=== PATIENT | female | born 1950 | race Hispanic/Latino ===

== ENCOUNTER 2022-04-08 08:52 | Inpatient (IN) | payer OTHER ==
[~2022-04-08] VITALS: Ht 157.5 cm; Wt 64.1 kg
[2022-04-08 09:34] LABS: BASOPHILS % (AUTO) 0.2 % (0.0-5.0); EOSINOPHILS % (AUTO) 0.1 % (0.0-8.0); HEMATOCRIT 36.9 % (36-48); LYMPHOCYTES % (AUTO) 7.7 % (21.0-51.0); MEAN CORPUSCULAR HEMOGLOBIN 29.2 pg (27.0-33.0); MEAN CORPUSCULAR HGB CONC 33.6 g/dL (32.0-36.0); MEAN CORPUSCULAR VOLUME 86.8 fL (79-99); MONOCYTES % (AUTO) 2.3 % (3.0-13.0); NEUTROPHILS % (AUTO) 89.4 % (40.0-77.0); PLATELET COUNT (AUTO) 136 K/uL (130-400); RED BLOOD CELL COUNT(AUTO) 4.25 MIL/uL (4.00-5.50); RED CELL DISTRIBUTION WIDTH 13.9 % (11.0-15.5); WHITE BLOOD COUNT (AUTO) 10.8 K/uL (4.8-10.8)
[2022-04-08 09:40] LABS: APPEARANCE,URINE SL CLOUDY (CLEAR); BILIRUBIN,URINE NEGATIVE (NEGATIVE); COLOR,URINE YELLOW (YELLOW); GLUCOSE, URINE (UA) NEGATIVE (NEGATIVE); KETONES,URINE NEGATIVE (NEGATIVE); LEUKOCYTE ESTERASE ,URINE LARGE Leu/uL (NEGATIVE); NITRATE,URINE NEGATIVE (NEGATIVE); OCCULT BLOOD,URINE LARGE (NEGATIVE); PROTEIN,URINE 100 mg/dL (NEGATIVE); UROBILINOGEN,URINE 0.2 mg/dL (0.2-1.0)
[2022-04-08 09:41] LABS: CREATININE 1.8 mg/dL (0.5-1.5); POTASSIUM 4.4 mmol/L (3.5-5.1); TOTAL PROTEIN, SERUM 7.4 g/dL (6.0-8.3)
[2022-04-08 09:58] LABS: BACTERIA,URINE Moderate /HPF (None Seen); RBC,URINE 26-50 /HPF (0-1); WBC,URINE 26-50 /HPF (0-1)
[2022-04-08 09:59] LABS: RENAL EPITHELIAL CELLS,URINE Few /HPF (None Seen); TRANSITIONAL EPI CELLS,URINE Few /HPF (None Seen)
[2022-04-08] MEDS ORDERED: ONDANSETRON 4MG INJ IVP SCH (10:00)
[2022-04-08] MEDS ORDERED: ASPIRIN 81MG CHEW TAB PO SCH (10:00)
[2022-04-08] MEDS ORDERED: CEFTRIAXONE 1G VIAL ONE (10:38)
[2022-04-08] MEDS ORDERED: CEFTRIAXONE 1G VIAL IVP ONE (11:00)
[2022-04-08] MEDS ORDERED: LACTATED RINGERS 1000ML 1,000 ML IV ONE (12:15)
[2022-04-08] MEDS: LACTATED RINGERS 1000ML 1,000 ML IV SCH ×2 (12:15→23:50)
[2022-04-08] MEDS ORDERED: CLONIDINE HCL 0.1 MG TABLET PO PRN (12:30)
[2022-04-08] MEDS: CEFTRIAXONE 1G VIAL IVP SCH (12:30)
[2022-04-08] MEDS ORDERED: ACETAMINOPHEN 650 MG SUPPOSITORY RC PRN (12:30)
[2022-04-08] MEDS ORDERED: LACTULOSE 20 GM/30 ML UDCUP PO PRN (12:30)
[2022-04-08] MEDS ORDERED: ONDANSETRON 4MG INJ IVP PRN (12:30)
[2022-04-08] MEDS ORDERED: LABETALOL 20MG SYG IV PRN (12:30)
[2022-04-08] MEDS ORDERED: ASPIRIN 325MG TAB PO SCH (12:30)
[2022-04-08 12:44] LABS: CREATINE KINASE, TOTAL 25 U/L (21-232); MYOGLOBIN 67 ng/mL (10-92)
[2022-04-08] MEDS ORDERED: POTASSIUM CHLORIDE 10% ELIXIR 20 MEQ/15 ML UDCUP PO PRN (13:30)
[2022-04-08] MEDS ORDERED: KCL 20 MEQ ERTAB PO PRN (13:30)
[2022-04-08] MEDS ORDERED: GLUCAGON 1MG KIT 1 MG ML IM PRN (13:30)
[2022-04-08] MEDS ORDERED: LIDOCAINE HCL-MPF 1% 2ML VIAL IV PRN ×2 (13:30)
[2022-04-08] MEDS ORDERED: MAGNESIUM 2GM PREMIX 50ML 50 ML IV PRN (13:30)
[2022-04-08] MEDS ORDERED: POTASSIUM CHLORIDE 20MEQ/100ML 100 ML IV PRN ×2 (13:30)
[2022-04-08] MEDS ORDERED: DEXTROSE 50%-WATER 50 ML DISP.SYRIN IV PRN (13:30)
[2022-04-08] MEDS ORDERED: INSULIN HUMULIN R 100 UNIT/ML 3ML ONE (13:50)
[2022-04-08] MEDS ORDERED: METO-409 PO (16:26)
[2022-04-08] MEDS ORDERED: DOXA4TAB3 PO (16:26)
[2022-04-08] MEDS ORDERED: LOSA100T58 PO (16:26)
[2022-04-08] MEDS ORDERED: ATOR20TA65 PO (16:26)
[2022-04-08] MEDS ORDERED: GLIP2.5T2 PO (16:26)
[2022-04-08] MEDS ORDERED: AMLO-257 PO (16:26)
[2022-04-08] MEDS ORDERED: DONE10TA43 PO (16:26)
[2022-04-08 16:30] VITALS: BP 113/45
[2022-04-08] MEDS: INSULIN HUMULIN R 100 UNIT/ML 3ML SQ SCH ×4 (16:30→21:00)
[2022-04-08 19:39] VITALS: BP 154/54
[2022-04-08] MEDS: FAMOTIDINE 20MG TAB PO SCH (20:33)
[2022-04-08 23:49] VITALS: BP 147/60
[2022-04-08] MEDS: ACETAMINOPHEN 325 MG TAB PO PRN (23:51)
[2022-04-09 03:58] VITALS: BP 149/48
[2022-04-09 04:30] LABS: BASOPHILS % (AUTO) 0.2 % (0.0-5.0); EOSINOPHILS % (AUTO) 0.2 % (0.0-8.0); HEMATOCRIT 31.9 % (36-48); LYMPHOCYTES % (AUTO) 12.4 % (21.0-51.0); MEAN CORPUSCULAR HEMOGLOBIN 29.3 pg (27.0-33.0); MEAN CORPUSCULAR HGB CONC 32.9 g/dL (32.0-36.0); MEAN CORPUSCULAR VOLUME 89.1 fL (79-99); NEUTROPHILS % (AUTO) 77.6 % (40.0-77.0); PLATELET COUNT (AUTO) 121 K/uL (130-400); RED BLOOD CELL COUNT(AUTO) 3.58 MIL/uL (4.00-5.50); RED CELL DISTRIBUTION WIDTH 13.9 % (11.0-15.5); WHITE BLOOD COUNT (AUTO) 10.5 K/uL (4.8-10.8)
[2022-04-09 04:44] LABS: CREATININE 1.7 mg/dL (0.5-1.5); MAGNESIUM 2.1 mg/dL (1.80-2.40); PHOSPHORUS 4.4 mg/dL (2.5-4.9); POTASSIUM 4.5 mmol/L (3.5-5.1)
[2022-04-09 05:02] LABS: B-TYPE NATRIURETIC PEPTIDE 169 pg/mL (0-100)
[2022-04-09] MEDS: INSULIN HUMULIN R 100 UNIT/ML 3ML SQ SCH ×4 (07:30→20:54)
[2022-04-09 08:00] VITALS: BP 157/48
[2022-04-09] MEDS: ASPIRIN 81MG CHEW TAB PO SCH (08:29)
[2022-04-09] MEDS: FAMOTIDINE 20MG TAB PO SCH ×2 (08:29→21:08)
[2022-04-09] MEDS: ENOXAPARIN SODIUM 40 MG/0.4 ML SYRINGE SQ SCH (08:30)
[2022-04-09] MEDS: LACTATED RINGERS 1000ML 1,000 ML IV SCH ×3 (08:33→20:30)
[2022-04-09] MEDS: CEFTRIAXONE 1G VIAL IVP SCH (11:18)
[2022-04-09 12:00] VITALS: BP 151/48
[2022-04-09 16:00] VITALS: BP 157/58
[2022-04-09] MEDS: LOSARTAN 100 MG TABLET PO SCH (17:59)
[2022-04-09] MEDS: AMLODIPINE 5 MG TAB PO SCH (17:59)
[2022-04-09] MEDS ORDERED: ALPR0.5T8 PO (19:41)
[2022-04-09 20:29] VITALS: BP 154/62
[2022-04-09] MEDS ORDERED: GLIPIZIDE XL 2.5MG TAB PO SCH (21:00)
[2022-04-09] MEDS: DOXAZOSIN MESYLATE 2 MG TABLET PO SCH (21:08)
[2022-04-09] MEDS: METOPROLOL SUCCINATE 50 MG TAB.SR.24H PO SCH (21:08)
[2022-04-09] MEDS: ATORVASTATIN 20 MG TABLET PO SCH (21:08)
[2022-04-09] MEDS: DONEPEZIL HCL 5 MG TAB PO SCH (21:08)
[2022-04-09] MEDS ORDERED: ALPRAZOLAM 0.5 MG TABLET ONE (22:44)
[2022-04-09] MEDS: ACETAMINOPHEN 325 MG TAB PO PRN (23:26)
[2022-04-09 23:38] VITALS: BP 149/64
[2022-04-10] MEDS ORDERED: LACTATED RINGERS 1000ML 1,000 ML IV SCH (03:00)
[2022-04-10 03:36] VITALS: BP 146/72
[2022-04-10 04:45] LABS: BASOPHILS % (AUTO) 0.2 % (0.0-5.0); EOSINOPHILS % (AUTO) 0.6 % (0.0-8.0); HEMATOCRIT 31.7 % (36-48); LYMPHOCYTES % (AUTO) 15.3 % (21.0-51.0); MEAN CORPUSCULAR HEMOGLOBIN 29.3 pg (27.0-33.0); MEAN CORPUSCULAR HGB CONC 33.1 g/dL (32.0-36.0); MEAN CORPUSCULAR VOLUME 88.5 fL (79-99); MONOCYTES % (AUTO) 9.7 % (3.0-13.0); NEUTROPHILS % (AUTO) 73.7 % (40.0-77.0); PLATELET COUNT (AUTO) 124 K/uL (130-400); RED BLOOD CELL COUNT(AUTO) 3.58 MIL/uL (4.00-5.50); RED CELL DISTRIBUTION WIDTH 13.6 % (11.0-15.5); WHITE BLOOD COUNT (AUTO) 6.3 K/uL (4.8-10.8)
[2022-04-10 05:02] LABS: ALBUMIN 2.4 g/dL (3.5-5.0); CREATININE 1.5 mg/dL (0.5-1.5); POTASSIUM 3.9 mmol/L (3.5-5.1); TOTAL PROTEIN, SERUM 6.5 g/dL (6.0-8.3)
[2022-04-10] MEDS: INSULIN HUMULIN R 100 UNIT/ML 3ML SQ SCH ×4 (06:35→20:45)
[2022-04-10 08:00] VITALS: BP 134/46
[2022-04-10] MEDS: ASPIRIN 81MG CHEW TAB PO SCH (08:11)
[2022-04-10] MEDS: LOSARTAN 100 MG TABLET PO SCH (08:11)
[2022-04-10] MEDS: FAMOTIDINE 20MG TAB PO SCH ×2 (08:11→20:51)
[2022-04-10] MEDS: ENOXAPARIN SODIUM 40 MG/0.4 ML SYRINGE SQ SCH (08:13)
[2022-04-10] MEDS: CEFTRIAXONE 1G VIAL IVP SCH (11:39)
[2022-04-10 12:04] VITALS: BP 144/64
[2022-04-10] MEDS: ACETAMINOPHEN 325 MG TAB PO PRN ×2 (14:48→16:36)
[2022-04-10 16:00] VITALS: BP 149/78
[2022-04-10] MEDS: AMLODIPINE 5 MG TAB PO SCH (16:36)
[2022-04-10 20:20] VITALS: BP 146/69
[2022-04-10] MEDS: DOXAZOSIN MESYLATE 2 MG TABLET PO SCH (20:50)
[2022-04-10] MEDS: DONEPEZIL HCL 5 MG TAB PO SCH (20:51)
[2022-04-10] MEDS: METOPROLOL SUCCINATE 50 MG TAB.SR.24H PO SCH (20:51)
[2022-04-10] MEDS: ATORVASTATIN 20 MG TABLET PO SCH (20:51)
[2022-04-10] MEDS ORDERED: ALPRAZOLAM 0.5 MG TABLET PO SCH (21:00)
[2022-04-10] MEDS ORDERED: LEVO-70 PO (23:12)
[2022-04-11] VITALS: BP 127/73
[2022-04-11 04:18] VITALS: BP 141/67
[2022-04-11 04:58] LABS: BASOPHILS % (AUTO) 0.2 % (0.0-5.0); EOSINOPHILS % (AUTO) 1.3 % (0.0-8.0); HEMATOCRIT 33.6 % (36-48); LYMPHOCYTES % (AUTO) 23.9 % (21.0-51.0); MEAN CORPUSCULAR HEMOGLOBIN 28.6 pg (27.0-33.0); MEAN CORPUSCULAR HGB CONC 32.7 g/dL (32.0-36.0); MEAN CORPUSCULAR VOLUME 87.5 fL (79-99); MONOCYTES % (AUTO) 10.4 % (3.0-13.0); NEUTROPHILS % (AUTO) 63.8 % (40.0-77.0); PLATELET COUNT (AUTO) 144 K/uL (130-400); RED BLOOD CELL COUNT(AUTO) 3.84 MIL/uL (4.00-5.50); RED CELL DISTRIBUTION WIDTH 13.5 % (11.0-15.5); WHITE BLOOD COUNT (AUTO) 5.5 K/uL (4.8-10.8)
[2022-04-11 05:06] LABS: ALBUMIN 2.7 g/dL (3.5-5.0); CREATININE 1.4 mg/dL (0.5-1.5); POTASSIUM 3.6 mmol/L (3.5-5.1); TOTAL PROTEIN, SERUM 7.1 g/dL (6.0-8.3)
[2022-04-11] MEDS: INSULIN HUMULIN R 100 UNIT/ML 3ML SQ SCH (06:05)
[2022-04-11 07:10] VITALS: BP 138/74
[2022-04-11] MEDS: LOSARTAN 100 MG TABLET PO SCH (08:59)
[2022-04-11] MEDS: ENOXAPARIN SODIUM 40 MG/0.4 ML SYRINGE SQ SCH (08:59)
[2022-04-11] MEDS: FAMOTIDINE 20MG TAB PO SCH (08:59)
[2022-04-11] MEDS: ASPIRIN 81MG CHEW TAB PO SCH (08:59)
[2022-04-11] MEDS ORDERED: LEVOFLOXACIN 500 MG TABLET PO SCH (09:00)
== END 2022-04-11 10:50 | disposition home or self-care (01) | DRG 871 ==
LOC: EDH 08:52 → EDHIP 12:05 → 4AH 16:09
PROVIDERS: ADMIT Internal Medicine Critical Care Medicine; ATTEND Internal Medicine Critical Care Medicine
DX: A41.51 Sepsis due to Escherichia coli [E. coli] (principal); I21.A1 Myocardial infarction type 2; N17.9 Acute kidney failure, unspecified; N39.0 Urinary tract infection, site not specified; Z20.822 Contact with and (suspected) exposure to COVID-19; I12.9 Hypertensive chronic kidney disease with stage 1 through stage 4 chronic kidney disease, or unspecified chronic kidney disease; N18.9 Chronic kidney disease, unspecified; E86.0 Dehydration; E78.00 Pure hypercholesterolemia, unspecified; E11.22 Type 2 diabetes mellitus with diabetic chronic kidney disease; Z90.710 Acquired absence of both cervix and uterus; Z83.3 Family history of diabetes mellitus; Z82.49 Family history of ischemic heart disease and other diseases of the circulatory system
CPT/HCPCS: 36415; 71045; 74176; 80048; 80053; 81001; 82550; 82948; 83605; 83735; 83874; 83880; 84100; 84145; 84484; 85025; 87040; 87077; 87088; 87186; 87635; 87804; 93005; C9803; G0378; J0696; J1650; J1815; J2405; J7120

== ENCOUNTER → 2022-09-13 | Outpatient (CLI) | payer OTHER ==
[~2022-09-13] MED LIST: ALPR0.5T8 PO; AMLO-257 PO; APIX2.5T PO; ATOR20TA65 PO; DONE10TA43 PO; DOXA4TAB3 PO; GLIP2.5T2 PO; LOSA100T58 PO; METO-409 PO
== END | disposition home or self-care (01) ==
LOC: SHCH 13:01
PROVIDERS: ATTEND Internal Medicine Cardiovascular Disease
DX: I87.2 Venous insufficiency (chronic) (peripheral) (principal); I73.9 Peripheral vascular disease, unspecified
CPT/HCPCS: 93925; 93970

== ENCOUNTER → 2023-03-27 | Outpatient (CLI) | payer OTHER ==
[~2023-03-27] MED LIST changes: -LOSA100T58 PO; +LOSA100T59 PO
[2023-03-27 12:24] LABS: BASOPHILS # (AUTO) 0.03 K/uL (0.00-0.20); BASOPHILS % (AUTO) 0.4 % (0.0-5.0); EOSINOPHILS % (AUTO) 2.5 % (0.0-8.0); HEMATOCRIT 41.5 % (36-48); IMMATURE GRANULOCYTE ABSOLUTE 0.01 K/uL (0-1); LYMPHOCYTES # (AUTO) 3.3 K/uL (1.0-4.8); LYMPHOCYTES % (AUTO) 40.9 % (21.0-51.0); MEAN CORPUSCULAR HEMOGLOBIN 29.1 pg (27.0-33.0); MEAN CORPUSCULAR HGB CONC 31.3 g/dL (32.0-36.0); MEAN CORPUSCULAR VOLUME 92.8 fL (79-99); MONOCYTES # (AUTO) 0.5 K/uL (0.1-1.0); MONOCYTES % (AUTO) 5.8 % (3.0-13.0); NEUTROPHILS # (AUTO) 4.1 K/uL (1.8-7.7); NEUTROPHILS % (AUTO) 50.3 % (40.0-77.0); PLATELET COUNT (AUTO) 199 K/uL (130-400); RED BLOOD CELL COUNT(AUTO) 4.47 MIL/uL (4.00-5.50); RED CELL DISTRIBUTION WIDTH 14.3 % (11.0-15.5); WHITE BLOOD COUNT (AUTO) 8.1 K/uL (4.8-10.8)
[2023-03-27 12:36] LABS: INR 1.01 (0.85-1.15); PROTHROMBIN TIME 11.7 SEC (9.6-11.6)
[2023-03-27 12:38] LABS: PARTIAL THROMBOPLASTIN TIME 28.4 SEC (26.3-35.5)
[2023-03-27 12:56] LABS: CREATININE 1.7 mg/dL (0.5-1.5); POTASSIUM 4.3 mmol/L (3.5-5.1)
== END | disposition home or self-care (01) ==
LOC: LAB 09:44
PROVIDERS: ATTEND Internal Medicine Cardiovascular Disease
DX: I87.2 Venous insufficiency (chronic) (peripheral) (principal); I87.1 Compression of vein; R07.89 Other chest pain; I10 Essential (primary) hypertension; E78.5 Hyperlipidemia, unspecified; E11.9 Type 2 diabetes mellitus without complications; Z79.82 Long term (current) use of aspirin; Z79.899 Other long term (current) drug therapy
CPT/HCPCS: 36415; 80048; 85025; 85610; 85730

== ENCOUNTER → 2023-09-06 | Outpatient (CLI) | payer OTHER ==
[2023-09-06 12:39] LABS: BASOPHILS # (AUTO) 0.01 K/uL (0.00-0.20); BASOPHILS % (AUTO) 0.1 % (0.0-5.0); EOSINOPHILS # (AUTO) 0.04 K/uL (0.00-0.70); EOSINOPHILS % (AUTO) 0.4 % (0.0-8.0); HEMATOCRIT 36.6 % (36-48); IMMATURE GRANULOCYTE ABSOLUTE 0.03 K/uL (0-1); LYMPHOCYTES % (AUTO) 21.7 % (21.0-51.0); MEAN CORPUSCULAR HGB CONC 34.2 g/dL (32.0-36.0); MEAN CORPUSCULAR VOLUME 87.8 fL (79-99); MONOCYTES # (AUTO) 0.7 K/uL (0.1-1.0); MONOCYTES % (AUTO) 7.2 % (3.0-13.0); NEUTROPHILS # (AUTO) 6.5 K/uL (1.8-7.7); NEUTROPHILS % (AUTO) 70.3 % (40.0-77.0); PLATELET COUNT (AUTO) 201 K/uL (130-400); RED BLOOD CELL COUNT(AUTO) 4.17 MIL/uL (4.00-5.50); RED CELL DISTRIBUTION WIDTH 14.2 % (11.0-15.5); WHITE BLOOD COUNT (AUTO) 9.3 K/uL (4.8-10.8)
[2023-09-06 12:45] LABS: INR 1.06 (0.85-1.15); PROTHROMBIN TIME 12.4 SEC (9.6-11.6)
[2023-09-06 12:47] LABS: PARTIAL THROMBOPLASTIN TIME 27.7 SEC (26.3-35.5)
[2023-09-06 13:02] LABS: POTASSIUM 3.9 mmol/L (3.5-5.1)
== END | disposition home or self-care (01) ==
LOC: LAB 08:53
PROVIDERS: ATTEND Internal Medicine Cardiovascular Disease
DX: I10 Essential (primary) hypertension (principal); I87.1 Compression of vein; Z79.01 Long term (current) use of anticoagulants
CPT/HCPCS: 36415; 80048; 85025; 85610; 85730

== ENCOUNTER → 2023-12-05 | Outpatient (CLI) | payer OTHER, MEDICARE | END | disposition home or self-care (01) | LOC: SHCH 08:32 | PROVIDERS: ATTEND Internal Medicine Cardiovascular Disease | DX: I08.3 Combined rheumatic disorders of mitral, aortic and tricuspid valves (principal); I11.9 Hypertensive heart disease without heart failure; E11.9 Type 2 diabetes mellitus without complications; E78.5 Hyperlipidemia, unspecified; R07.9 Chest pain, unspecified; R06.09 Other forms of dyspnea; I20.9 Angina pectoris, unspecified | CPT/HCPCS: 93306 ==

== ENCOUNTER → 2023-12-08 | Outpatient (CLI) | payer OTHER, MEDICARE ==
[2023-12-08] MEDS: REGADENOSON 0.4 MG/5 ML PF SYG IVP ONE (11:12)
== END | disposition home or self-care (01) ==
LOC: SHCH 07:58
PROVIDERS: ATTEND Internal Medicine Cardiovascular Disease
DX: R94.31 Abnormal electrocardiogram [ECG] [EKG] (principal); R06.09 Other forms of dyspnea; R07.9 Chest pain, unspecified; I20.9 Angina pectoris, unspecified
CPT/HCPCS: 78452; 93017; J2785; A9500 ×2; 96374

== ENCOUNTER → 2025-05-05 | Outpatient (CLI) | payer OTHER, MEDICAID ==
[~2025-05-05] MED LIST changes: -GLIP2.5T2 PO; +GLIP2.5T23 PO
[2025-05-05 14:33] LABS: CREATININE 1.6 mg/dL (0.5-1.0); GLOMERULAR FILTR. RATE CALC 33.0 mL/min (>90); GLUCOSE,RANDOM 263.0 mg/dL (70-105); SODIUM SERUM 141.0 mmol/L (136-145); UREA NITROGEN, BLOOD 35.0 mg/dL (7-18)
== END | disposition home or self-care (01) ==
LOC: LAB 14:04
PROVIDERS: ATTEND Internal Medicine Cardiovascular Disease
DX: I10 Essential (primary) hypertension (principal); Z51.81 Encounter for therapeutic drug level monitoring
CPT/HCPCS: 36415; 80048